=== PATIENT | female | born 1995 | race Caucasian/White ===

== ENCOUNTER 2020-07-19 21:45 | Emergency (ER) | payer SELFPAY ==
[2020-07-19 23:16] LABS: ABSOLUTE LYMPHOCYTES (AUTO) 1.7 10^3/uL (0.5-4.7); ABSOLUTE MONOCYTES (AUTO) 0.5 10^3/uL (0.1-1.4); ABSOLUTE NEUT (AUTO) 10.2 10^3/uL (1.7-8.2); BASOPHILS % (AUTO) 0.2 % (0-2); HEMATOCRIT 41.9 % (36.0-47.0); HEMOGLOBIN 14.3 g/dL (12.0-15.5); LYMPHOCYTES % (AUTO) 13.6 % (13-45); MEAN CORPUSCULAR HEMOGLOBIN 32.9 pg (27.0-33.4); MEAN CORPUSCULAR VOLUME 97 fl (80-97); MONOCYTES % (AUTO) 4.1 % (3-13); PLATELET COUNT 350 10^3/uL (150-450); RED BLOOD COUNT 4.34 10^6/uL (3.72-5.28); RED CELL DISTRIBUTION WIDTH 13.8 % (11.5-14.0); SEGMENTED NEUTROPHILS % (AUTO) 82.1 % (42-78); TOTAL CELLS COUNTED % (AUTO) 100 %; WHITE BLOOD COUNT 12.5 10^3/uL (4.0-10.5)
[2020-07-19 23:37] LABS: ALBUMIN 5.3 g/dL (3.5-5.0); ALKALINE PHOSPHATASE 92 U/L (38-126); ANION GAP 12 (5-19); ASPARTATE AMINO TRANSFERASE 37 U/L (14-36); BILIRUBIN,DIRECT 0.2 mg/dL (0.0-0.4); BLOOD UREA NITROGEN 14 mg/dL (7-20); CALCIUM 10.4 mg/dL (8.4-10.2); CARBON DIOXIDE 27 mmol/L (22-30); CHLORIDE 98 mmol/L (98-107); GLUCOSE 87 mg/dL (75-110); POTASSIUM 3.9 mmol/L (3.6-5.0); TOTAL PROTEIN 8.8 g/dL (6.3-8.2)
[2020-07-19 23:38] LABS: ALCOHOL < 10 mg/dL (NONE DETECTED)
[2020-07-20 00:25] LABS: APPEARANCE,URINE CLEAR; BILIRUBIN,URINE NEGATIVE (NEGATIVE); COLOR,URINE YELLOW; GLUCOSE, URINE NEGATIVE (NEGATIVE); KETONES,URINE 80 mg/dL (NEGATIVE); LEUKOCYTE ESTERASE,URINE NEGATIVE (NEGATIVE); NITRITE,URINE NEGATIVE (NEGATIVE); PROTEIN,URINE 30 mg/dL (NEGATIVE); URINE SPECIFIC GRAVITY 1.024; UROBILINOGEN,URINE NEGATIVE mg/dL (<2.0)
[2020-07-20] MEDS ORDERED: RINGERS SOLUTION,LACTATED 1,000 ML IV ONE (01:54)
[2020-07-20] MEDS ORDERED: ONDANSETRON HCL INJ/PF 4 MG/2 ML SDV IV ONE (01:54)
[2020-07-20] MEDS ORDERED: FAMOTIDINE INJ/PF 20 MG/2 ML SDV IV ONE (01:55)
--- NOTE | 2020-07-20 01:55 | ER Document Report ---
ED General - General Chief Complaint: Dizziness Stated Complaint: POSSIBLE ALCOHOL POISONING Time Seen by Provider: 07/20/20 01:55 - HPI Notes: 24-year-old female presents stating that she feels like she is dehydrated. Patient states that she attended a [employer] last night and consumed copious amounts of alcohol on an empty stomach. She has had multiple episodes of vomiting today, she feels lightheaded, she has some burning sensation of the back of her mouth. She states she has not vomited for the past 2 hours. She denies abdominal pain. States she is otherwise healthy. No one else is sick, does not believe she has food poisoning. - Related Data Allergies/Adverse Reactions: No Known Allergies Allergy (Unverified 07/19/20 22:21) Past Medical History - General Information source: Patient - Social History Smoking Status: Current Every Day Smoker Chew tobacco use (# tins/day): No Frequency of alcohol use: Social Drug Abuse: Marijuana Family History: Reviewed & Not Pertinent Patient has homicidal ideation: No Review of Systems - Review of Systems Constitutional: denies: Fever EENT: No symptoms reported Cardiovascular: No symptoms reported Respiratory: No symptoms reported Gastrointestinal: See HPI Genitourinary: No symptoms reported Female Genitourinary: No symptoms reported Musculoskeletal: No symptoms reported Skin: No symptoms reported Hematologic/Lymphatic: No symptoms reported Neurological/Psychological: No symptoms reported Physical Exam - Vital signs Vitals: Temp 99.2 F 07/19/20 22:14 - General General appearance: Appears well, Alert In distress: None - HEENT Head: Normocephalic, Atraumatic Extraocular movements intact: Yes Pupils: PERRL Mucous membranes: Moist - Respiratory Breath sounds: Normal - Cardiovascular Rhythm: Regular Heart sounds: Normal auscultation - Abdominal Tenderness: Nontender - Extremities General upper extremity: Normal ROM General lower extremity: Normal ROM - Neurological Neuro grossly intact: Yes Cognition: Normal Orientation: AAOx4 - Psychological Associated symptoms: Normal affect - Skin Skin Temperature: Warm Course - Re-evaluation Re-evalutation: 24-year-old female presents after multiple episodes of vomiting following alcohol consumption last night. On exam she is well-appearing, abdomen soft, hemodynamically stable. She had labs done prior to evaluation. Slight leukocytosis, likely reactionary. No acute anemia. Electrolytes within normal limits. Creatinine within normal limits. No significant transaminitis. Ketones in urine suggestive of dehydrated state. Ethanol negative. Discussed with her symptoms are likely related to alcohol use. Would have a low suspicion for acute infectious etiology at this time. She was given Zofran, Pepcid and fluids for her symptoms. She was discharged with prescription for Zofran. Return precautions given, stable at time of discharge. - Vital Signs Vital signs: Temp Pulse Resp BP Pulse Ox 99.2 F 89 18 133/85 H 99 07/19/20 22:14 07/20/20 02:38 07/20/20 02:38 07/20/20 02:38 07/20/20 02:38 - Laboratory Results Result Diagrams: 07/19/20 23:02 07/19/20 23:02 Laboratory Results Interpreted: 07/19/20 07/19/20 07/19/20 23:02 23:02 23:40 WBC 12.5 H Absolute Neuts (auto) 10.2 H Seg Neutrophils % 82.1 H Calcium 10.4 H AST 37 H Total Protein 8.8 H Albumin 5.3 H Urine Protein 30 H Urine Ketones 80 H Urine Blood SMALL H Critical Laboratory Results Reviewed: No Critical Results - Radiology Results Critical Radiology Results Reviewed: No Critical Results Discharge - Discharge Clinical Impression: Vomiting Qualifiers: Vomiting type: unspecified Vomiting Intractability: non-intractable Nausea presence: with nausea Qualified Code(s): R11.2 - Nausea with vomiting, unspeci fied Disposition: HOME, SELF-CARE Additional Instructions: Continue use of Zofran as needed for nausea/vomiting. Diet as tolerated, be sure to drink plenty of fluids. Return to the emergency department for any concerning worsening symptoms. Prescriptions: Ondansetron [Zofran Odt 4 mg Tablet] 1 tab PO Q4H PRN #30 tab.rapdis PRN Reason: For Nausea/Vomiting
[2020-07-20 02:41] VITALS: BP 133/85
== END 2020-07-20 02:40 | disposition home or self-care (01) ==
LOC: ER 21:45
DX: R11.2 Nausea with vomiting, unspecified (principal); R42 Dizziness and giddiness; F17.200 Nicotine dependence, unspecified, uncomplicated
CPT/HCPCS: 99284; 96374; 96375; 36415; 80307; 85025; 80053; 81001; J2405; J7120; S0028